=== PATIENT | female | born 1955 | race Caucasian/White ===

== ENCOUNTER 2018-05-02 15:15 | Inpatient (IN) | payer BC ==
[~2018-05-02] VITALS: Ht 154.9 cm; Wt 80.1 kg
[2018-05-02 15:17] VITALS: Ht 154.9 cm; Wt 80.1 kg
[2018-05-02 18:35] LABS: BASOPHIL % 0.8 % (0-2); PLATELET COUNT 170 x10^3mcL (130-400)
[2018-05-02 18:38] LABS: RED CELL DISTRIBUTION WIDTH 17.8 % (11.5-14.5)
[2018-05-02 18:54] LABS: CALCIUM 8.8 mg/dL (8.5-10.1); CARBON DIOXIDE 24.8 mmol/L (21-32); CHLORIDE SERUM 106 mmol/L (98-107); CREATININE SERUM 0.7 mg/dL (0.6-1.0); GFR1 > 60 mL/min; GLUCOSE SERUM 98 mg/dL (74-106); POTASSIUM SERUM 3.4 mmol/L (3.5-5.1); SODIUM SERUM 141 mmol/L (136-145)
[2018-05-02 18:58] LABS: ALKALINE PHOSPHATASE 135 U/L (46-116); ALT/SGPT 32 U/L (14-59); AST/SGOT 46 U/L (15-37); TOTAL PROTEIN, SERUM 8.2 g/dL (6.4-8.2)
[2018-05-02 18:59] LABS: ALBUMIN 3.3 g/dL (3.4-5.0)
[2018-05-02] MEDS ORDERED: LOSARTAN POTASS25 M1 PO (21:25)
[2018-05-02] MEDS ORDERED: LEVOTHYROXIN0.125 M2 PO (21:25)
[2018-05-02 22:20] LABS: microscopic required? YES; urine erythrocyte TRACE (NEGATIVE)
[2018-05-02 22:46] LABS: CHOLESTEROL/HDL RATIO 2.7; MAGNESIUM 1.8 mg/dL (1.8-2.4); PHOSPHOROUS 3.9 mg/dL (2.5-4.9)
[2018-05-02 22:51] LABS: T3 TOTAL 0.7 ng/mL
[2018-05-02 23:25] VITALS: BP 105/14
[2018-05-02 23:35] LABS: FREE T4 1.15 ng/dL (0.76-1.46); FREE THYROXINE INDEX 2.6 ug/dL (1.4-4.5); T4(THYROXINE) 7.7 ug/dL (4.7-13.3)
[2018-05-02 23:43] VITALS: BP 124/69
[2018-05-03 07:42] LABS: PLATELET COUNT 141 x10^3mcL (130-400)
[2018-05-03 07:47] LABS: ALKALINE PHOSPHATASE 104 U/L (46-116); ALT/SGPT 26 U/L (14-59); AST/SGOT 31 U/L (15-37); BILIRUBIN DIRECT 0.57 mg/dL (0.0-0.2); BILIRUBIN TOTAL 1.3 mg/dL (0.20-1.00); CALCIUM 8.5 mg/dL (8.5-10.1); CHLORIDE SERUM 111 mmol/L (98-107); CREATININE SERUM 0.7 mg/dL (0.6-1.0); GFR1 > 60 mL/min; GLUCOSE SERUM 88 mg/dL (74-106); MAGNESIUM 1.6 mg/dL (1.8-2.4); PHOSPHOROUS 4.8 mg/dL (2.5-4.9); POTASSIUM SERUM 3.2 mmol/L (3.5-5.1); SODIUM SERUM 144 mmol/L (136-145); TOTAL PROTEIN, SERUM 6.7 g/dL (6.4-8.2)
[2018-05-03 07:48] LABS: ALBUMIN 2.7 g/dL (3.4-5.0)
[2018-05-03 07:52] LABS: RED CELL DISTRIBUTION WIDTH 17.5 % (11.5-14.5)
[2018-05-03 08:32] VITALS: BP 108/55
[2018-05-03 12:40] VITALS: BP 110/69
[2018-05-03 16:37] VITALS: BP 112/56
[2018-05-03 21:33] VITALS: BP 100/53
[2018-05-04] VITALS (8 sets, daily range): BP systolic 73–135; BP diastolic 44–88
[2018-05-05] VITALS (10 sets, daily range): BP systolic 85–124; BP diastolic 51–78
[2018-05-05 05:15] LABS: BASOPHIL % 0.6 % (0-2); PLATELET COUNT 161 x10^3mcL (130-400)
[2018-05-05 05:16] LABS: RED CELL DISTRIBUTION WIDTH 17.1 % (11.5-14.5)
[2018-05-05 05:33] LABS: CALCIUM 8.6 mg/dL (8.5-10.1); CARBON DIOXIDE 27.2 mmol/L (21-32); CREATININE SERUM 1.2 mg/dL (0.6-1.0); MAGNESIUM 1.7 mg/dL (1.8-2.4); PHOSPHOROUS 5.2 mg/dL (2.5-4.9); POTASSIUM SERUM 4.1 mmol/L (3.5-5.1)
[2018-05-06 05:34] VITALS: BP 92/56
[2018-05-06 08:12] LABS: CALCIUM 8.4 mg/dL (8.5-10.1); CARBON DIOXIDE 24.4 mmol/L (21-32); CHLORIDE SERUM 106 mmol/L (98-107); CREATININE SERUM 0.9 mg/dL (0.6-1.0); GFR1 > 60 mL/min; GLUCOSE SERUM 113 mg/dL (74-106); MAGNESIUM 1.8 mg/dL (1.8-2.4); PHOSPHOROUS 4.9 mg/dL (2.5-4.9); POTASSIUM SERUM 4.3 mmol/L (3.5-5.1); SODIUM SERUM 139 mmol/L (136-145)
[2018-05-06 08:13] LABS: BASOPHIL % 0.7 % (0-2); PLATELET COUNT 181 x10^3mcL (130-400); RED CELL DISTRIBUTION WIDTH 17.3 % (11.5-14.5)
[2018-05-06 10:25] VITALS: BP 97/61
[2018-05-06 12:01] VITALS: BP 86/57
[2018-05-06 17:09] VITALS: BP 92/59
[2018-05-06 20:53] VITALS: BP 112/73
[2018-05-07 06:26] VITALS: BP 103/60
[2018-05-07 07:04] LABS: CALCIUM 8.2 mg/dL (8.5-10.1); CARBON DIOXIDE 28.2 mmol/L (21-32); CHLORIDE SERUM 106 mmol/L (98-107); CREATININE SERUM 0.9 mg/dL (0.6-1.0); GFR1 > 60 mL/min; GLUCOSE SERUM 83 mg/dL (74-106); MAGNESIUM 1.8 mg/dL (1.8-2.4); PHOSPHOROUS 4.2 mg/dL (2.5-4.9); POTASSIUM SERUM 4.1 mmol/L (3.5-5.1); SODIUM SERUM 139 mmol/L (136-145)
[2018-05-07 07:11] LABS: PLATELET COUNT 151 x10^3mcL (130-400); RED CELL DISTRIBUTION WIDTH 17.2 % (11.5-14.5)
[2018-05-07 09:40] VITALS: BP 124/70
[2018-05-07 13:23] VITALS: BP 124/70
[2018-05-07 13:28] VITALS: BP 134/79
[2018-05-07 17:01] VITALS: BP 100/58
[2018-05-07 20:54] VITALS: BP 116/67
[2018-05-08 05:42] VITALS: BP 116/68
[2018-05-08 08:50] VITALS: BP 135/68
[2018-05-08 17:23] VITALS: BP 124/83
[2018-05-08 17:50] VITALS: BP 124/83
== END 2018-05-08 19:00 | DRG 314 ==
LOC: ED 15:15 → DU 22:19 → IC 05-05 00:11 → DU 05-05 18:52
PROVIDERS: Emergency Medicine; ADMIT General Practice
DX: I27.20 Pulmonary hypertension, unspecified (principal); J96.01 Acute respiratory failure with hypoxia; N17.0 Acute kidney failure with tubular necrosis; E44.1 Mild protein-calorie malnutrition; N39.0 Urinary tract infection, site not specified; J44.1 Chronic obstructive pulmonary disease with (acute) exacerbation; J44.0 Chronic obstructive pulmonary disease with (acute) lower respiratory infection; I20.0 Unstable angina; I50.20 Unspecified systolic (congestive) heart failure; I07.1 Rheumatic tricuspid insufficiency; I11.0 Hypertensive heart disease with heart failure; E03.9 Hypothyroidism, unspecified; F17.210 Nicotine dependence, cigarettes, uncomplicated; E87.6 Hypokalemia; R74.0 Nonspecific elevation of levels of transaminase and lactic acid dehydrogenase [LDH]; K76.81 Hepatopulmonary syndrome; K70.30 Alcoholic cirrhosis of liver without ascites; F10.10 Alcohol abuse, uncomplicated; E66.01 Morbid (severe) obesity due to excess calories; G47.33 Obstructive sleep apnea (adult) (pediatric); E83.42 Hypomagnesemia; I50.810 Right heart failure, unspecified; J20.9 Acute bronchitis, unspecified; Z90.49 Acquired absence of other specified parts of digestive tract; Z68.32 Body mass index [BMI] 32.0-32.9, adult; Z83.3 Family history of diabetes mellitus; Z23 Encounter for immunization
CPT/HCPCS: 36600; 83880; 84439; 85378; 90658; 94150; 97112-GP; J0696; J1265; J1644; J1650; J1940; J2405; J7030; J7613; J7644; Q0092; Q9967